=== PATIENT | male | born 1950 | race African-American/Black ===

== ENCOUNTER 2018-10-01 05:08 | Day surgery (SDC) | payer MEDICARE, OTHER ==
--- NOTE | 2018-09-22 10:54 | Pre-Procedure Note/Attestation ---
Pre-Procedure Note/Attestation Complete Prior to Procedure Planned Procedure: right Procedure Narrative: phaco with iol Indications for Procedure Pre-Operative Diagnosis: cataract Attestation I attest that I discussed the nature of the procedure; its benefits; risks and complications; and alternatives (and the risks and benefits of such alternatives ), prior to the procedure, with the patient (or the patient's legal account manager sales representative). I attest that, if there was a reasonable possibility of needing a blood transfusion, the patient (or the patient's legal account manager sales representative) was given the [facility] standardized written summary, pursuant to the [place] Blood Safety Act ([place] Health and Safety Code # 1645, as amended). I attest that I re-evaluated the patient just prior to the surgery and that there has been no change in the patient's H&P, except as documented below: Jean-Claude Richardson MD Sep 22, 2018 10:54
--- NOTE | 2018-09-22 11:36 | Opthalmology H&P ---
Ophthalmology H&P H&P Chief Complaint: decreased vision in right eye HPI Vision Affects Ability to: read, focus/use eyes together, manage personal affairs HPI Narrative BLURRY VISION Exam Visual Acuity: OD; 20/60 OS; 20/25 Tension: OD;18 OS;18 Eye Exam: normal OU: external exam, palpebral fissure-width, marginal reflex distance, levator function, corneas, anterior chambers, fundus exam; findings: lens - OD; CORTICAL OS; CORTICAL Assessment/Plan Diagnosis: (1) Cortical senile cataract of right eye Treatment Plan: cataract extraction w/ lens implant Goals of Treatment: improvement of vision, enhance quality of life Attestation Attestation The risks and benefits of the surgery as well as alternative procedures were explained to the patient in detail. Jean-Claude Richardson MD Sep 22, 2018 11:36
[2018-09-27 10:01] LABS: BASOPHILS % (AUTO) 1.2 % (0.0-2.0); EOSINOPHILS % (AUTO) 1.3 % (0.0-3.0); HEMOGLOBIN 16.9 G/DL (14.2-18.0); MEAN CORPUSCULAR VOLUME 89 FL (80-99); MONOCYTES % (AUTO) 11.4 % (1.0-10.0); NEUTROPHILS % (AUTO) 52.1 % (45.0-75.0); PLATELET COUNT 244 K/UL (150-450); RED BLOOD COUNT 6.07 M/UL (4.70-6.10); RED CELL DISTRIBUTION WIDTH 12.5 % (11.6-14.8); WHITE BLOOD COUNT 8.9 K/UL (4.8-10.8)
[2018-09-27 10:22] LABS: ANION GAP 10 mmol/L (5-15); BLOOD UREA NITROGEN 16 mg/dL (7-18); CALCIUM 9.5 MG/DL (8.5-10.1); CARBON DIOXIDE 26 MMOL/L (21-32); CHLORIDE 101 MMOL/L (98-107); CREATININE 1.1 MG/DL (0.55-1.30); POTASSIUM 3.9 MMOL/L (3.5-5.1); SODIUM 136 MMOL/L (136-145)
--- NOTE | 2018-09-28 16:17 | Cardiology Report ---
APPROVED REPORT EKG Measurement Heart [id number] ID [id number] Sinus bradycardia with 1st degree AV block with occasional premature ventricular complexes Rightward axis Anterior infarct, age undetermined T wave abnormality, consider inferolateral ischemia Abnormal ECG
[2018-10-01] VITALS (7 sets, daily range): BP systolic 117–139; BP diastolic 70–89
[~2018-10-01] VITALS: Ht 167.6 cm; Wt 74.8 kg
[~2018-10-01 05:08] MED LIST: AMLODIPINE BESY10 MG ORAL; ASPIRIN EC81 MG ORAL; Akten 3.5% 1ml Btl RIGHT EYE ONE; CARVEDILOL6.25 MG ORAL; Cyclopentolate 1% Opth Sol 2ml RIGHT EYE SCH; Diclofenac Sod 0.1% Op Soln RIGHT EYE SCH; FERROUS SULFAT325 MG ORAL; FUROSEMIDE40 MG ORAL; GABAPENTIN300 MG ORAL; MIRTAZAPINE15 M3 ORAL; POTASSIUM CHLO20 ME3 PO; Phenylephrine 10% Opth Soln 5ml RIGHT EYE SCH; Proparacaine 0.5% Opth Soln 15ml RIGHT EYE ONE; TYLENOL325 MG ORAL; Tetracaine 0.5% Opth 4ml Soln RIGHT EYE ONE; Tobramycin Op Soln 0.3% 5ml RIGHT EYE SCH; Tropicamide 1% Opth 15ml Soln RIGHT EYE SCH; VITAMIN C500 M1 ORAL
[2018-10-01] MEDS ORDERED: Akten 3.5% 1ml Btl RIGHT EYE ONE ×2 (07:00)
[2018-10-01] MEDS ORDERED: Tropicamide 1% Opth 15ml Soln RIGHT EYE SCH (07:00)
[2018-10-01] MEDS ORDERED: Tetracaine 0.5% Opth 4ml Soln RIGHT EYE ONE ×2 (07:00)
[2018-10-01] MEDS ORDERED: Diclofenac Sod 0.1% Op Soln RIGHT EYE SCH (07:00)
[2018-10-01] MEDS ORDERED: Proparacaine 0.5% Opth Soln 15ml RIGHT EYE ONE ×2 (07:00)
[2018-10-01] MEDS ORDERED: Cyclopentolate 1% Opth Sol 2ml RIGHT EYE SCH (07:00)
[2018-10-01] MEDS ORDERED: Tobramycin Op Soln 0.3% 5ml RIGHT EYE SCH (07:00)
[2018-10-01] MEDS ORDERED: Phenylephrine 10% Opth Soln 5ml RIGHT EYE SCH (07:00)
[2018-10-01] MEDS: Cyclopentolate 1% Opth Sol 2ml RIGHT EYE SCH ×3 (12:29→12:43)
[2018-10-01] MEDS: Tropicamide 1% Opth 15ml Soln RIGHT EYE SCH ×3 (12:29→12:44)
[2018-10-01] MEDS: Tobramycin Op Soln 0.3% 5ml RIGHT EYE SCH ×3 (12:29→12:43)
[2018-10-01] MEDS: Phenylephrine 10% Opth Soln 5ml RIGHT EYE SCH ×3 (12:30→12:43)
[2018-10-01] MEDS: Diclofenac Sod 0.1% Op Soln RIGHT EYE SCH ×3 (12:30→12:44)
--- NOTE | 2018-10-01 12:44 | Anethesia Preoperative Eval ---
Anesthesia Pre-op PMH/ROS General Date of Evaluation: Oct 01, 2018 Anesthesiologist: Alison ASA Score: ASA 3 Mallampati Score Class I : Soft palate, uvula, fauces, pillars visible Class II: Soft palate, uvula, fauces visible Class III: Soft palate, base of uvula visible Class IV: Only hard plate visible Mallampati Classification: Class III Surgeon: Debra Diagnosis: Right cataract Surgical Procedure: Right cataract extraction with IOL Anesthesia History: none Family History: no anesthesia problems Allergies: Coded Allergies: NO KNOWN ALLERGIES (Unverified Allergy, Unknown, 06/20/15) Medications: see eMAR Patient NPO?: Yes NPO Date: Oct 01, 2018 NPO Time: 22:00 Past Medical History Cardiovascular: Reports: HTN, [place] - s/p stent placement; Denies: CAD, valve dz, arrhythmia, other Pulmonary: Reports: asthma; Denies: COPD, PATIENCE, other Gastrointestinal/Genitourinary: Reports: other - BPH; Denies: GERD, CRI, ESRD Neurologic/Psychiatric: Denies: dementia, CVA, depression/anxiety, TIA, other Endocrine: Denies: DM, hypothyroidism, steroids, other HEENT: Denies: cataract (L), cataract (R), glaucoma, [place] (L), [place] (R), other Hematology/Immune: Denies: anemia, DVT, bleeding disorder, other Musculoskeletal/Integumentary: Denies: OA, RA, DJD, DDD, edema, other PSxH Narrative: denies Anesthesia Pre-op Phys. Exam Physician Exam Last Vital Signs Date Time Temp Pulse Resp B/P (MAP) Pulse Ox O2 Delivery O2 Flow Rate FiO2 10/01/18 12:33 97.9 74 18 117/72 99 Room Air Constitutional: NAD Cardiovascular: RRR Respiratory: CTA Airway Exam Mallampati Score: Class II MO: full ROM: full Anesthesia Pre-op A/P Labs see chart Studies Pre-op Studies: EKG - sr Risk Assessment & Plan Assessment: ASA III Plan: MAC Status Change Before Surgery: No Pre-Antibiotics Drug: N/A Kiera Serra MD Oct 01, 2018 12:44
[2018-10-01] MEDS ORDERED: BSS 500ml btl ONE (12:57)
[2018-10-01] MEDS ORDERED: EPINEPHrine 1mg/1ml Amp ONE (12:57)
[2018-10-01] MEDS ORDERED: Povidone-Iodine 5% opth solution ONE (12:58)
[2018-10-01] MEDS ORDERED: BSS 15ml BTL ONE (12:58)
--- NOTE | 2018-10-01 12:58 | Immediate Post-Op Evaluation ---
Immediate Post-Op Evalulation Immediate Post-Op Evalulation Procedure: Left cataract extraction with IOL Date of Evaluation: Oct 01, 2018 Time of Evaluation: 12:59 IV Fluids: 500 Blood Products: 0 Estimated Blood Loss: 0 Urinary Output: 0 Blood Pressure Systolic: 169 Blood Pressure Diastolic: 87 Pulse Rate: 79 Respiratory Rate: 17 O2 Sat by Pulse Oximetry: 95 Temperature (Fahrenheit): 97.2 Pain Score (1-10): 0 Nausea: No Vomiting: No Complications 0 Patient Status: awake, reacts, patent, none Hydration Status: adequate Drug: N/A Kiera Serra MD Oct 01, 2018 12:58
--- NOTE | 2018-10-01 12:59 | 48 Hour Post Anesthesia Eval ---
Post Anesthesia Evaluation Procedure: Left cataract extraction with IOL Date of Evaluation: Oct 01, 2018 Airway: patent Nausea: No Vomiting: No Pain Intensity: 0 Hydration Status: adequate Cardiopulmonary Status: at baseline Mental Status/LOC: patient returned to baseline Post-Anesthesia Complications: 0 Follow-up care needed: ready to discharge Kiera Serra MD Oct 01, 2018 12:59
[2018-10-01] MEDS ORDERED: Lidocaine 1% MPF 10mg/ml 5ml ONE ×2 (13:00→13:02)
[2018-10-01] MEDS ORDERED: LR 1000ml ONE (13:00)
[2018-10-01] MEDS ORDERED: Maxitrol Opth Oint 3.5gm ONE (13:00)
[2018-10-01] MEDS ORDERED: Pred Forte 1% Opth Susp 1ml ONE (13:00)
[2018-10-01] MEDS ORDERED: fentaNYL 100 mcg/2 mL IV ONE (13:00)
[2018-10-01] MEDS ORDERED: Dexamethasone 4mg/ml vial ONE (13:00)
[2018-10-01] MEDS ORDERED: Pilocarpine 2% Opth 15ml Soln ONE (13:00)
[2018-10-01] MEDS ORDERED: acetaZOLAMIDE 500mg Inj ONE (13:03)
[2018-10-01] MEDS ORDERED: Sodium Hyaluronate 14 mg/ml 0.85ml ONE (13:17)
--- NOTE | 2018-10-02 20:12 | Brief Operative Note ---
Immediate Post Operative Note Operative Note Chief Complaint: blurry vision Pre-op Diagnosis: cataract, OD Procedure: phaco with IOL Post-op Diagnosis: pseudophakia Post-op Diagnosis: same as pre-op Findings: consistent w/pre-op dx studies Surgeon: Debra Anesthesiologist: Diaz Anesthesia: MAC Specimen: none Complications: none Condition: stable Fluids: LR Estimated Blood Loss: none Drains: none Implant(s) used?: Yes Jean-Claude Richardson MD Oct 02, 2018 20:12
--- NOTE | 2018-10-02 20:13 | Operative Note - PDOC ---
Operative Note Operative Note Date of Operation/Procedure: Oct 01, 2018 Chief Complaint: blurry vision Pre-op Diagnosis: cataract, OD Procedure: phaco with IOL Post-op Diagnosis: pseudophakia Post-op Diagnosis: same as pre-op Operative Findings: consistent w/pre-op dx studies Surgeon: Debra Anesthesiologist: Diaz Anesthesia: MAC Specimen: none Complications: none Condition: stable Fluids: LR Estimated Blood Loss: none Drains: none Implant(s) used?: Yes Indications for Procedure cataract Description of Procedure This patient has been complaining visually significant cataract in the right eye with the best corrected visual acuity under moderate glare conditions worse. The patient complains of difficulties with glare in performing activities of daily living and wants to manage personal affairs with comfort and accuracy and see well enough to move with safety at home and outdoors. ~~~ The risks, benefits and alternatives of the procedure were discussed with the patient in the office prior to scheduling surgery. All questions from the patient were answered after the surgical procedure was explained in detail. The risks of the procedure as explained to the patient include, but are not limited to, pain, infection, bleeding, loss of vision, retinal detachment, need for further surgery, loss of lens nucleus, double vision, etc. Alternative procedures were discussed which include, to do nothing or seek a second opinion. Informed consent for this procedure was obtained from the patient. The patient was referred to a primary care physician for a cardiopulmonary clearance prior to surgery, after proper evaluation was done patient was properly scheduled for outpatient surgery. The patient was brought to the operating room where the anesthesiologist established I.V. lines and cardiac monitoring leads. Mild intravenous sedation was administered. Using a solution containing 0.75% Marcaine and 2% lidocaine with [place], a peribulbar block was administered to the eye. ~The patient was then prepared with a 5% solution of povidone-iodine to the conjunctival fornix and lashes, and a 10% solution of povidone-iodine to the lids and periorbital skin. The patient was then draped in the usual sterile fashion. A lid speculum was then placed in the operative eye. A keratome blade was then used to create a biplanar incision into the anterior chamber. Viscoelastics was then instilled into the anterior chamber. A curvilinear capsulorrhexis was then fashioned with an utrata forceps. BSS and a cannula were then used to hydrodissect and hydro delineate the lens. Paracentesis incision was made at 3 o'clock with sharp blade. The phacoemulsification unit, after being properly adjusted ~and tested, was then used to emulsify the nucleus followed by the residual cortical material being aspirated with the irrigation and aspiration unit. Healon was then instilled into the anterior chamber. The corneal wound was then enlarged to the size of the optic with the jose keratome blade. The intraocular lens was then inspected for right ~power and size and thought to be satisfactory. Then the lens was gently placed in the capsular bag. Positioning within the capsular bag was confirmed by direct visualization. Optic centration was accomplished with a [place]ins[place] hook. Viscoelastics ~was removed from the anterior chamber using the irrigation and aspiration unit. The corneal wound was then tested for leaks and none were found. The lid speculum were then removed. Sponge and needle counts were correct. An eye patch and shield were placed over the operative eye. The patient was taken to the recovery room in stable condition. There were no complications. The patient tolerated the procedure well. The patient was then transferred to the ambulatory surgery unit in stable and satisfactory condition , was given detailed written instructions and asked to follow up ~in the office the next day. Jean-Claude Richardson MD Oct 02, 2018 20:13
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
== END 2018-10-01 15:15 | disposition home or self-care (01) ==
LOC: SUR 05:08
DX: H25.011 Cortical age-related cataract, right eye (principal); I25.2 Old myocardial infarction; I11.0 Hypertensive heart disease with heart failure; I50.9 Heart failure, unspecified; J44.9 Chronic obstructive pulmonary disease, unspecified; N40.0 Benign prostatic hyperplasia without lower urinary tract symptoms; Z86.19 Personal history of other infectious and parasitic diseases; Z95.5 Presence of coronary angioplasty implant and graft
CPT/HCPCS: 36415; 66984; 80048; 85025; 93005; J0171; J1100; J1120; J3010; J3370; V2632; 94003; 94150

== ENCOUNTER 2020-04-25 18:18 | Emergency (ER) | payer MEDICARE, OTHER ==
[~2020-04-25] VITALS: Ht 177.8 cm; Wt 72.6 kg
[~2020-04-25 18:18] MED LIST changes: -Akten 3.5% 1ml Btl RIGHT EYE ONE; -Cyclopentolate 1% Opth Sol 2ml RIGHT EYE SCH; -Diclofenac Sod 0.1% Op Soln RIGHT EYE SCH; -Phenylephrine 10% Opth Soln 5ml RIGHT EYE SCH; -Proparacaine 0.5% Opth Soln 15ml RIGHT EYE ONE; -Tetracaine 0.5% Opth 4ml Soln RIGHT EYE ONE; -Tobramycin Op Soln 0.3% 5ml RIGHT EYE SCH; -Tropicamide 1% Opth 15ml Soln RIGHT EYE SCH
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
[2020-04-25 19:22] VITALS: BP 105/75
--- NOTE | 2020-04-25 19:35 | Diagnostic Imaging Report ---
EXAM: XR Chest, 1 View CLINICAL HISTORY: ALOC TECHNIQUE: Frontal view of the chest. COMPARISON: 11/23/2007. FINDINGS: Lungs: Minimal subsegmental atelectasis at the lung bases. Pleural space: Unremarkable. No pneumothorax. Heart: There is cardiomegaly. Mediastinum: Unremarkable. Bones/joints: Osteopenia. Other findings: There is hypoaeration. IMPRESSION: 1. Cardiomegaly. 2. No pleural effusions.
[2020-04-25 19:53] LABS: ANION GAP 11 mmol/L (5-15); BLOOD UREA NITROGEN 25 mg/dL (7-18); CALCIUM 8.4 MG/DL (8.5-10.1); CARBON DIOXIDE 25 MMOL/L (21-32); CHLORIDE 93 MMOL/L (98-107); CREATININE 0.9 MG/DL (0.55-1.30); SODIUM 129 MMOL/L (136-145)
[2020-04-25 19:55] LABS: BASOPHILS % (AUTO) 2.8 % (0.0-2.0); EOSINOPHILS % (AUTO) 0.4 % (0.0-3.0); HEMATOCRIT 37.4 % (42.0-52.0); HEMOGLOBIN 12.1 G/DL (14.2-18.0); LYMPHOCYTES % (AUTO) 19.5 % (20.0-45.0); MEAN CORPUSCULAR VOLUME 94 FL (80-99); MONOCYTES % (AUTO) 16.6 % (1.0-10.0); NEUTROPHILS % (AUTO) 60.7 % (45.0-75.0); PLATELET COUNT 149 K/UL (150-450); RED BLOOD COUNT 3.96 M/UL (4.70-6.10); RED CELL DISTRIBUTION WIDTH 14.1 % (11.6-14.8); WHITE BLOOD COUNT 10.3 K/UL (4.8-10.8)
[2020-04-25 20:35] LABS: ALANINE AMINOTRANSFERASE 57 U/L (12-78); ALBUMIN 3.1 G/DL (3.4-5.0); ALBUMIN/GLOBULIN RATIO 0.9 (1.0-2.7); ALKALINE PHOSPHATASE 264 U/L (46-116); ASPARTATE AMINO TRANSFERASE 83 U/L (15-37); BILIRUBIN,TOTAL 0.7 MG/DL (0.2-1.0); CREATINE KINASE 81 U/L (26-308); FERRITIN > 2000 NG/ML (8-388); LACTATE DEHYDROGENASE 452 U/L (81-234)
[2020-04-25] MEDS ORDERED: Vancomycin 1 GM in NS 275 ML IVPB ONE (20:45)
[2020-04-25] MEDS ORDERED: Cefepime HCl 1 GM in D5W 55 ML IVPB ONE (20:45)
[2020-04-25 21:30] VITALS: BP 106/76
[2020-04-25 21:40] LABS: APPEARANCE,URINE CLEAR; BILIRUBIN, URINE NEGATIVE (NEGATIVE); GLUCOSE, URINE (UA) 4+ (NEGATIVE); KETONES,URINE NEGATIVE (NEGATIVE); LEUKOCYTE ESTERASE ,URINE 1+ (NEGATIVE); NITRITE,URINE NEGATIVE (NEGATIVE); PH,URINE 5 (4.5-8.0); PROTEIN,URINE 2+ (NEGATIVE); UROBILINOGEN,URINE 1 MG/DL (0.0-1.0)
[2020-04-25 21:41] LABS: COLOR,URINE YELLOW
[2020-04-25 22:00] VITALS: BP 123/71
== END 2020-04-25 22:00 | disposition short-term general hospital (02) ==
LOC: EDBD 18:18 → EDSEX 18:18 → EMR 19:16
DX: E11.649 Type 2 diabetes mellitus with hypoglycemia without coma (principal); I10 Essential (primary) hypertension; F12.90 Cannabis use, unspecified, uncomplicated; R00.1 Bradycardia, unspecified; E87.6 Hypokalemia; E87.1 Hypo-osmolality and hyponatremia; R74.0 Nonspecific elevation of levels of transaminase and lactic acid dehydrogenase [LDH]; Z79.4 Long term (current) use of insulin; I44.0 Atrioventricular block, first degree; I51.7 Cardiomegaly
CPT/HCPCS: 36415; 71045; 80053; 80307; 81003; 82550; 82728; 82962; 83605; 83615; 83690; 83735; 83880; 84443; 84484; 85025; 85610; 85730; 86140; 93005; 96361; 96365; 96367; 96375; 99284; G0480; J0692; J3370; J3480; J7030; J7050; J8499